=== PATIENT | female | born 1945 | race Caucasian/White ===

== ENCOUNTER 2024-03-26 12:50 | Outpatient (CLI) | payer MEDICARE, BC | END 2024-03-26 12:51 | disposition home or self-care (01) | LOC: CSHULT 12:50 | PROVIDERS: ATTEND Family Medicine | DX: N17.9 Acute kidney failure, unspecified (principal); R79.89 Other specified abnormal findings of blood chemistry; I51.7 Cardiomegaly; I38 Endocarditis, valve unspecified; I27.20 Pulmonary hypertension, unspecified | CPT/HCPCS: 76770; 93306 ==

== ENCOUNTER 2025-03-11 10:15 | Outpatient (CLI) | payer MEDICARE, BC | END 2025-03-11 10:16 | disposition home or self-care (01) | LOC: CSHSLEEP 10:15 | PROVIDERS: ATTEND Internal Medicine | DX: G47.33 Obstructive sleep apnea (adult) (pediatric) (principal); R06.83 Snoring; F32.A Depression, unspecified; I10 Essential (primary) hypertension; R09.02 Hypoxemia | CPT/HCPCS: 95811 ==